=== PATIENT | male | born 2000 | race Hispanic/Latino ===

== ENCOUNTER 2021-06-08 17:26 | Emergency (ER) | payer OTHER ==
[~2021-06-08] VITALS: Ht 182.9 cm; Wt 72.6 kg
[2021-06-08] MEDS ORDERED: ACETAMINOPHEN500 MG PO (17:48)
== END 2021-06-08 18:09 | disposition home or self-care (01) ==
LOC: FSED 17:42
DX: S61.012A Laceration without foreign body of left thumb without damage to nail, initial encounter (principal); W31.89XA Contact with other specified machinery, initial encounter; Y92.89 Other specified places as the place of occurrence of the external cause
CPT/HCPCS: 99283